=== PATIENT | male | born 1965 | race Caucasian/White ===

== ENCOUNTER 2020-12-06 04:40 | Inpatient (IN) | payer OTHER ==
[~2020-12-06] VITALS: Ht 175.3 cm; Wt 90.7 kg
[2020-12-06 05:14] LABS: HEMOGLOBIN 10.8 gm/dl (14.0-17.5); RED BLOOD COUNT 3.59 M/UL (4.20-5.50); WHITE BLOOD COUNT 17.3 K/UL (4.5-11.0)
[2020-12-06] MEDS ORDERED: FLOMAX 0.4 MG0.4 MG PO (12:57)
[2020-12-06] MEDS ORDERED: CLONIDINE HCL0.2 MG PO (12:57)
[2020-12-06] MEDS ORDERED: LABETALOL HCL200 MG PO (12:58)
[2020-12-06] MEDS ORDERED: LISINOPRIL-HCT1 EAC1 PO (12:59)
[2020-12-06] MEDS ORDERED: JANUMET 50-1,01 EACH PO (13:00)
[2020-12-06] MEDS ORDERED: AMLODIPINE BESY10 MG PO (13:01)
[2020-12-06 22:37] LABS: HEMOGLOBIN 9.5 gm/dl (14.0-17.5); WHITE BLOOD COUNT 14.9 K/UL (4.5-11.0)
[2020-12-06 22:41] LABS: RED BLOOD COUNT 3.16 M/UL (4.20-5.50)
[2020-12-07 05:46] LABS: HEMOGLOBIN 9.5 gm/dl (14.0-17.5); RED BLOOD COUNT 3.12 M/UL (4.20-5.50); WHITE BLOOD COUNT 12.6 K/UL (4.5-11.0)
[2020-12-07 10:12] LABS: BORDETELLA PARAPERTUSSIS Not Detected (Not Detectd); BORDETELLA PERTUSSIS Not Detected (Not Detectd); CHLAMYDIA PNEUMONIAE Not Detected (Not Detectd); CORONAVIRUS HKU1 Not Detected (Not Detectd); CORONAVIRUS NL63 Not Detected (Not Detectd); CORONAVIRUS OC43 Not Detected (Not Detectd); CORONOAVIRUS 229E Not Detected (Not Detectd); HUMAN METAPNEUMOVIRUS Not Detected (Not Detectd); HUMAN RHINOVIRUS/ENTEROVIRUS Not Detected (Not Detectd); INFLUENZA A Not Detected (Not Detectd); INFLUENZA B Not Detected (Not Detectd); MYCOPLASMA PNEUMONIAE Not Detected (Not Detectd); PARAINFLUENZA VIRUS 1 Not Detected (Not Detectd); PARAINFLUENZA VIRUS 2 Not Detected (Not Detectd); PARAINFLUENZA VIRUS 3 Not Detected (Not Detectd); PARAINFLUENZA VIRUS 4 Not Detected (Not Detectd); RESPIRATORY SYNCYTIAL VIRUS Not Detected (Not Detectd)
[2020-12-07 12:04] LABS: SARS-CoV-2 NOT DETECTED (Not Detectd)
[2020-12-08 06:08] LABS: HEMOGLOBIN 9.6 gm/dl (14.0-17.5); RED BLOOD COUNT 3.19 M/UL (4.20-5.50); WHITE BLOOD COUNT 9.8 K/UL (4.5-11.0)
[2020-12-08 06:41] LABS: CREATININE, URINE 63.3 mg/dL (Not Estab.)
[2020-12-09 05:07] LABS: HEMOGLOBIN 10.1 gm/dl (14.0-17.5); RED BLOOD COUNT 3.31 M/UL (4.20-5.50); WHITE BLOOD COUNT 10.1 K/UL (4.5-11.0)
[2020-12-10 05:28] LABS: HEMOGLOBIN 11.4 gm/dl (14.0-17.5); WHITE BLOOD COUNT 12.4 K/UL (4.5-11.0)
[2020-12-10 05:29] LABS: RED BLOOD COUNT 3.75 M/UL (4.20-5.50)
[2020-12-12 15:04] LABS: HEMOGLOBIN 11.3 gm/dl (14.0-17.5); RED BLOOD COUNT 3.65 M/UL (4.20-5.50); WHITE BLOOD COUNT 13.4 K/UL (4.5-11.0)
[2020-12-12 15:30] LABS: HEMOGLOBIN 11.4 gm/dl (14.0-17.5); RED BLOOD COUNT 3.69 M/UL (4.20-5.50)
[2020-12-13 04:48] LABS: HEMOGLOBIN 10.8 gm/dl (14.0-17.5); RED BLOOD COUNT 3.52 M/UL (4.20-5.50)
[2020-12-14 04:24] LABS: HEMOGLOBIN 10.5 gm/dl (14.0-17.5); RED BLOOD COUNT 3.48 M/UL (4.20-5.50); WHITE BLOOD COUNT 7.7 K/UL (4.5-11.0)
--- NOTE | 2020-12-14 13:44 | NUR ---
0930 DR CAO NOTIFIED PT REQUESTING TO LEAVE AMA. STATES HE UNDERSTANDS RISKS OF LEAVING INCLUDING RISK OF INJURY AND . MD AND SIGNIFICANT OTHER TALKING WITH PT, PT AGREEABLE TO STAY AT THIS TIME BUT REFUSES TELE OR PULSE OX. 9020 DR CAO AND WELT CUTTER VIRGILIO NOTIFIED PT REFUSING TO TRANSFER TO PCU. STATED HE AGREED TO STAY FOR HEART CATH ON WEDNESDAY AND WOULD LIKE TO STAY IN THE ROOM HE IS IN. TRANSFER REQUEST REMOVED FOR NOW. WILL DISCUSS WITH PT WHEN RETURNS.
[2020-12-15 05:29] LABS: HEMOGLOBIN 10.9 gm/dl (14.0-17.5); RED BLOOD COUNT 3.58 M/UL (4.20-5.50)
[2020-12-15 05:40] LABS: WHITE BLOOD COUNT 9.7 K/UL (4.5-11.0)
--- NOTE | 2020-12-15 17:07 | NUR ---
MD AND REGISTER CLERK SPOKE WITH PATIENT ON RISKS OF LEAVING AMA. PATIENT AGREED TO STAY FOR THE NIGHT LONG HIS LOCKHART CATHETER WAS REMOVED. PATIENT WAS EDUCATED ON THE NEED FOR THE LOCKHART CATHETER BUT DEMANDS IT BE REMOVED. MD STATES TO REMOVE LOCKHART AND TO BLADDER SCAN IN THE MORNING TO DETERMINE IF THE LOCKHART NEEDS TO BE REPLACED. LOCKHART CATHETER REMOVED AT 1640 PER MD AND PATIENT REQUEST. PATIENT IS STILL REFUSING TO WEAR TELEMETRY AND IS OUT WALKING THE HALLS WITHOUT A MASK. PATIENT ASKED TO WEAR MASK AND AGREED.
--- NOTE | 2020-12-15 20:00 | NUR ---
PATIENT HAS NO IV ACCESS. PATIENT IS REFUSING IV AT THIS TIME. WILL CONTINUE TO TRY TO CONVINCE PATIENT TO ALLOW FOR AN IV TO BE PLACED.
[2020-12-16 02:30] LABS: HEMOGLOBIN 10.1 gm/dl (14.0-17.5); RED BLOOD COUNT 3.35 M/UL (4.20-5.50); WHITE BLOOD COUNT 8.1 K/UL (4.5-11.0)
--- NOTE | 2020-12-16 14:11 | NUR ---
NO CHANGE FROM PREVIOUS ASSESSMENT
[2020-12-17 07:14] LABS: HEMOGLOBIN 9.6 gm/dl (14.0-17.5); RED BLOOD COUNT 3.29 M/UL (4.20-5.50); WHITE BLOOD COUNT 7.5 K/UL (4.5-11.0)
== END 2020-12-17 09:34 | disposition left against medical advice (07) | DRG 207 ==
LOC: ER1 04:40 → PROG CARE 08:20 → CDU 08:20 → CCU 08:20 → PROG CARE 12-15 12:56
PROVIDERS: Emergency Medicine; Internal Medicine; Internal Medicine Nephrology; Physician Assistant; ADMIT Internal Medicine
PROC: 5A1955Z Respiratory Ventilation, Greater than 96 Consecutive Hours (ICD-10-PCS; principal; 2020-12-06)
PROC: 0BH17EZ Insertion of Endotracheal Airway into Trachea, Via Natural or Artificial Opening (ICD-10-PCS; 2020-12-06)
DX: J96.01 Acute respiratory failure with hypoxia (principal); A41.9 Sepsis, unspecified organism; J18.9 Pneumonia, unspecified organism; G93.41 Metabolic encephalopathy; N17.0 Acute kidney failure with tubular necrosis; I21.A1 Myocardial infarction type 2; I50.23 Acute on chronic systolic (congestive) heart failure; R57.8 Other shock; I16.1 Hypertensive emergency; E87.2 Acidosis; E87.3 Alkalosis; E87.1 Hypo-osmolality and hyponatremia; I42.9 Cardiomyopathy, unspecified; I13.0 Hypertensive heart and chronic kidney disease with heart failure and stage 1 through stage 4 chronic kidney disease, or unspecified chronic kidney disease; J96.02 Acute respiratory failure with hypercapnia; Z20.822 Contact with and (suspected) exposure to COVID-19; I16.0 Hypertensive urgency; C61 Malignant neoplasm of prostate; F17.200 Nicotine dependence, unspecified, uncomplicated; E11.21 Type 2 diabetes mellitus with diabetic nephropathy; E87.6 Hypokalemia; R63.4 Abnormal weight loss; D63.1 Anemia in chronic kidney disease; R31.0 Gross hematuria; N18.30 Chronic kidney disease, stage 3 unspecified; E11.22 Type 2 diabetes mellitus with diabetic chronic kidney disease; Z79.4 Long term (current) use of insulin; Z80.8 Family history of malignant neoplasm of other organs or systems; Z82.49 Family history of ischemic heart disease and other diseases of the circulatory system; Z88.6 Allergy status to analgesic agent
CPT/HCPCS: ECHO; 31500; 36415; 36600; 71045; 80048; 80053; 80061; 80202; 81001; 82043; 82550; 82553; 82570; 82803; 82962; 83036; 83605; 83690; 83735; 83880; 84100; 84132; 84156; 84484; 85018; 85025; 85027; 85379; 85610; 85730; 86140; 87040; 87070; 87077; 87081; 87086; 87186; 87205; 87633; 92526; 92610; 93005; 93306; 93308; 93970; 94002; 94003; 94760; 96374; 97110-GP-CQ; 97116-GP-CQ; 97161; 97166; 99285; C9113; J0330; J0360; J0692; J1120; J1644; J1940; J2060; J2185; J2250; J2704; J3370; J3475; J3480; J3486; J7030; J7070; Q9967; U0002